=== PATIENT | male | born 1955 | race Two or more races ===

== ENCOUNTER → 2022-04-05 | Day surgery (SDC) | payer MEDICARE, OTHER ==
[2022-04-04 10:17] LABS: BASOPHILS % 0.5 % (0.0-1.0); EOSINOPHILS # (AUTO) 0.1 (0.0-0.4); EOSINOPHILS % 1.4 % (0.0-6.0); HEMATOCRIT 47.6 % (38.2-49.6); HEMOGLOBIN 15.6 g/dL (14.0-18.0); LYMPHOCYTES # (AUTO) 2.5 (1.0-3.2); LYMPHOCYTES % 28.9 % (18.0-39.1); MEAN CORPUSCULAR HEMOGLOBIN 30.6 pg (28-32); MEAN CORPUSCULAR HGB CONC 32.8 g/dL (31-35); MEAN CORPUSCULAR VOLUME 93.3 fL (81-99); MONOCYTES # (AUTO) 0.6 (0.2-0.8); MONOCYTES % 7.2 % (4.4-11.3); NEUTROPHILS # (AUTO) 5.2 (2.1-6.9); NEUTROPHILS % 61.4 % (38.7-80.0); PLATELET COUNT 340 x10e3/uL (140-360); RED CELL DISTRIBUTION WIDTH 12.1 % (11.7-14.4)
[~2022-04-05] MED LIST: ANTIBIOTIC28.4 GM PO; AUGMENTIN 500-1 EACH PO; BROMFED DM COU118 ML PO; PROPOFOL IV EMULSION 10 MG/ML 20 ML VIAL ONE
[2022-04-05 14:35] VITALS: BP 109/67
== END | disposition home or self-care (01) ==
LOC: OR 11:16
PROVIDERS: ATTEND Internal Medicine Gastroenterology
DX: Z12.11 Encounter for screening for malignant neoplasm of colon (principal); D12.2 Benign neoplasm of ascending colon; K64.8 Other hemorrhoids; Z71.3 Dietary counseling and surveillance; Z01.810 Encounter for preprocedural cardiovascular examination; Z01.812 Encounter for preprocedural laboratory examination; Z68.28 Body mass index [BMI] 28.0-28.9, adult
CPT/HCPCS: 36415; 45380; 45385; 85025; 88305; 93005; J2704; 45378